=== PATIENT | male | born 1950 | race Caucasian/White ===

== ENCOUNTER 2019-05-20 18:19 | Emergency (ER) | payer OTHER, SELFPAY ==
[2019-05-20 19:22] VITALS: BP 137/75; PULSE 65; RESP 20; TEMP 36.6; O2SAT 97; BMI 25.8
--- NOTE | 2019-05-20 19:26 | DI.RAD.S_ITS ---
PROCEDURE: XR CHEST 2V INDICATIONS: short of breath with cough TECHNIQUE: 2 views of the chest were acquired. COMPARISON: None. FINDINGS: Surgical changes and devices: None. Lungs and pleura: Lungs are clear. No pleural effusions or pneumothorax. Mediastinum: Mediastinal contours are normal. Heart size is normal. Bones and chest wall: No suspicious bony abnormalities. Soft tissues appear unremarkable. IMPRESSION: No acute cardiopulmonary abnormalities or focal airspace disease. Dictated by: Tylor Rapp M.D. on 05/20/2019 at 20:42 Approved by: Tylor Rapp M.D. on 05/20/2019 at 20:42
--- NOTE | 2019-05-20 20:08 | ED.SOB ---
HPI - SOB/Dyspnea General Chief Complaint: Upper Respiratory Symptoms Stated Complaint: FLUID IN LUNGS COLD SYMPTOMS Time Seen by Provider: 05/20/19 20:07 Source: patient and other (Friend at bedside) Mode of arrival: Ambulatory Limitations: no limitations History of Present Illness HPI Narrative: This is a 68-year-old male who comes to the emergency department with concern for pneumonia. Patient states he has had nasal congestion, a nonproductive cough and feeling more short of breath. Patient has not had any fevers. He states he had a cold like symptoms for about a week and he typically will later than developing pneumonia. He has had runny nose, he states the cough is dry. He states he has felt increasingly short of breath the last couple days. Patient states he has not had any nausea or vomiting. He denies any chest pain or pressure. He denies any issues with urination or bowel movements. He denies any swelling in his extremities. He denies any other medical history. He has a remote history of tobacco use for short period of time, he does smoke marijuana he denies any other illicit. He has had multiple orthopedic surgeries. He states he is allergic to oxycodone but no other medications. Patient has not had any recent travel history or known suspicious contacts. Related Data Previous Rx's Medication Instructions Recorded azithromycin See Rx Instructions .ROUTE 05/20/19 .COMPLEX #6 tab Allergies Allergy/AdvReac Type Severity Reaction Status Date / Time latex [LATEX] Allergy Mild lip Unverified 06/20/17 13:11 swelling and itchy oxycodone [OXYCODONE] Allergy Mild Unverified 06/20/17 13:11 Review of Systems Review of Systems ROS Unobtainable: All systems reviewed & are unremarkable except as noted in HPI and below Patient History alcohol intake frequency: a few times a week Alcohol type: beer Substance Use Type: marijuana Exam Narrative Exam Narrative: GEN: well nourished, well appearing male, alert and oriented x 3, patient appears to be in mild distress. HEENT: Atraumatic, pupils are equal round reactive to light, extraocular movements are intact, nares are clear, TMs are clear with no fluid, there is no conjunctival pallor. Throat is clear without any exudates, erythema, tonsillar enlargement or uvular deviation HEART: Regular rate and rhythm without murmur, clicks, rubs. No edema bilateral lower extremities. LUNGS:Lungs mild wheeze on the right greater on the left, wheezes, no rales, crackles, chest moves symmetrically, no tachypnea accessory muscle use. ABD:bowel sounds normal, soft, non-tender, no guarding, rebound, rigidity, no masses noted, no hepatosplenomegaly MSCL: Non-tender, no muscle atrophy, full range of motion, normal gait NEURO:CN 2-12 intact, sensation normal SKIN: No rashes or skin changes noted. Initial Vital Signs Initial Vital Signs: Vital Signs Temperature 97.8 F 05/20/19 19:22 Pulse Rate 65 05/20/19 19:22 Respiratory Rate 20 05/20/19 19:22 Blood Pressure 137/75 05/20/19 19:22 Pulse Oximetry 97 05/20/19 19:22 Course Orders Ordered: ED Orders 05/20/19 19:26 XR chest 2V Stat 05/20/19 19:30 Respiratory Panel (Film Array) Stat Discontinued Medications Albuterol (Ventolin Hfa Prepack) 1 box MISC SEEINSTR ONE Stop: 05/20/19 20:20 Last Admin: 05/20/19 20:50 Dose: 1 box Documented by: BHUMIKA Ceftriaxone Sodium (Rocephin) 1,000 mg IM NOW ONE Stop: 05/20/19 20:36 Last Admin: 05/20/19 20:57 Dose: 1,000 mg Documented by: ROBERT Vital Signs Vital signs: Vital Signs - 8 hr 05/20/19 19:22 05/20/19 21:03 Temperature 97.8 F Pulse Rate 65 80 Respiratory Rate 20 22 Blood Pressure 137/75 Blood Pressure [Left Arm] 130/90 Pulse Oximetry 97 96 MDM - SOB/Dyspnea Lab Data Attestation: I reviewed the patient's lab results. Labs: Lab Results 05/20/19 Range/Units 19:30 Chlamy pneumoniae PCR Not detected (Not Detect) Adenovirus (PCR) Not detected (Not Detect) B.parapertussis DNA PCR Not detected (Not Detect) Coronavirus OC43 (PCR) Not detected (Not Detect) Coronavirus HKU1 (PCR) Not detected (Not Detect) Coronavirus 229E (PCR) Not detected (Not Detect) Coronavirus NL63 (PCR) Not detected (Not Detect) Human Metapneumovir PCR Detected H (Not Detect) Influenza Type A (PCR) Not detected (Not Detect) Influenza Type B (PCR) Not detected (Not Detect) M. pneumoniae (PCR) Not detected (Not Detect) Parainfluenza 1 (PCR) Not detected (Not Detect) Parainfluenza 2 (PCR) Not detected (Not Detect) Parainfluenza 3 (PCR) Not detected (Not Detect) Parainfluenza 4 (PCR) Not detected (Not Detect) RSV (PCR) Not detected (Not Detect) Entero/Rhino (PCR) Not detected (Not Detect) Imaging Data Chest x-ray: My Impression: Patient appears to have infiltrate on the right mid lower lobe on prelim. No prior chest x-ray for comparison. Otherwise no other acute changes. No signs of pulmonary edema. Patient has some cardiomegaly. No free air noted. No fractures. Discharge Plan Departure Patient Disposition: Home Clinical Impression: Pneumonia, Infection due to human metapneumovirus (hMPV) Discharge Date/Time: 05/20/19 21:04 Instructions: Atypical Pneumonia Activity Restrictions/Additional Instructions: Follow-up with your physician in the next week for recheck. Call the emergency department to follow-up your respiratory panel as you have elected to return home before it has resulted the number is [phone] Take antibiotics until completely gone unless directed otherwise. Use albuterol inhaler 1-2 puffs every 4 hours as needed for wheezing. Use a spacer with this. Return to the ER for new or worsening symptoms, increasing shortness of breath, lightheadedness, passing out, new chest pain, coughing up blood or colored productive sputum, swelling of your extremities, persistent vomiting or other new or concerning symptoms. Prescriptions: New azithromycin 250 mg tablet See Rx Instructions .ROUTE .COMPLEX Qty: 6 RF: 0 Referrals: Se Dupree MD [Primary Care Provider] -
--- NOTE | 2019-05-20 20:39 | PC.NURSE ---
IV started 2nd attempt RAC with #[id number].Blood drawn for labs-sent. First IV attempt unsuccessful, IV cath removed intact.Pt tolerated well.
[2019-05-20] MEDS: ALBUTEROL HFA PREPACK 1 BOX MISC (20:50)
[2019-05-20 20:51] LABS: Adenovirus Not Detected (Not Detect); Bordetella pertussis Not Detected (Not Detect); Chlamydophila pneumoniae Not Detected (Not Detect); Coronavirus 229E Not Detected (Not Detect); Coronavirus HKU1 Not Detected (Not Detect); Coronavirus NL 63 Not Detected (Not Detect); Coronavirus OC43 Not Detected (Not Detect); Human Metapneumovirus Detected (Not Detect); Human Rhinovirus/Enterovirus Not Detected (Not Detect); Influenza A Not Detected (Not Detect); Influenza B Not Detected (Not Detect); Mycoplasma pneumoniae Not Detected (Not Detect); Parainfluenza Virus 1 Not Detected (Not Detect); Parainfluenza Virus 2 Not Detected (Not Detect); Parainfluenza Virus 3 Not Detected (Not Detect); Parainfluenza Virus 4 Not Detected (Not Detect); Respiratory Syncytial Virus Not Detected (Not Detect)
[2019-05-20] MEDS: cefTRIAXone 2,000 MG VIAL 1000 MG IM (20:57)
[2019-05-20 21:03] VITALS: BP 130/90; PULSE 80; RESP 22; O2SAT 96
== END 2019-05-20 21:04 | disposition home or self-care (01) ==
PROVIDERS: Emergency Provider Emergency Medicine; Family Provider Emergency Medicine Emergency Medical Services; PCP Emergency Medicine Emergency Medical Services
DX: J12.3 Human metapneumovirus pneumonia (principal)
CPT/HCPCS: 36415; 71046; 87633; 96372; 99283; 99284; J0696

== ENCOUNTER → 2020-02-28 15:04 | Outpatient (CLI) | payer OTHER, SELFPAY ==
--- NOTE | 2020-02-28 15:08 | DI.MRI.S_ITS ---
PROCEDURE: MR LUMBAR SPINE WO CON INDICATIONS: Spondylolisthesis, site unspecified TECHNIQUE: Noncontrast sagittal T1 spin echo and T2 fast echo, sagittal STIR, axial T1 and T2 fast spin echo through the lumbar spine. In cases with scoliosis, additional coronal T2 fast spin echo may be performed. COMPARISON: None. FINDINGS: Image quality: Diagnostic, with note made of motion artifact. Alignment and Curvature: Mild levoconvex scoliotic curvature is noted. There is grade 1 L5-S1 anterolisthesis seen. Associated bilateral L5 pars defects can be seen. Minimal L4-5 retrolisthesis is seen. Bone Marrow: Marrow is of normal overall signal. No acute vertebral body compression fractures. Spinal Cord: Conus medullaris terminates at the L1 level. Visualized cord demonstrates normal signal and size. Paraspinous Soft Tissues: No paravertebral masses. T12-L1: Normal appearance. L1-L2: Normal appearance. L2-L3: The disc height and disc signal are relatively well preserved. Moderate generalized disc bulge is seen. Mild to moderate facet hypertrophy can be seen at this level. No significant neural foraminal narrowing is seen. Moderate central canal narrowing is seen. L3-L4: Mild loss of disc height is seen. Loss of disc signal is seen. Moderate loss of disc height is seen. Loss of disc signal is seen. There is a right lateral recess disc extrusion seen, with mild superior migration of the extruded disc material. There is an associated annular fissure seen. Moderate facet joint hypertrophy is seen. Associated hypertrophy of the ligamentum flavum can be seen. There is moderate right-sided and no significant left-sided neural foraminal narrowing seen. Moderate central canal narrowing is seen. L4-L5: Moderate loss of disc height is seen. Loss of disc signal is seen. There is a focal annular fissure seen posteriorly. The [id number] disc bulge is seen. Moderate facet joint hypertrophy is seen. Moderate bilateral neural foraminal narrowing can be seen, left worse than right. Mild to moderate central canal narrowing is seen. L5-S1: Moderate loss of disc height is seen. Loss of disc signal is seen. Moderate facet joint hypertrophy is seen. Moderate generalized disc bulge is seen. Moderate to severe bilateral neural foraminal narrowing can be seen. There is a degree of compression seen upon the exiting nerve roots. Mild central canal narrowing is seen. IMPRESSION: Lower lumbar spine degenerative changes are seen, which are worst at the L5-S1 level, where there is grade 1 anterolisthesis and associated bilateral pars defects. At L5-S1, there is moderate to severe bilateral neural foraminal narrowing, with associated exiting nerve root compression. At L3-L4, there is a right lateral recess disc extrusion, with superior migration of the disc material. Dictated by: Aki Rojas M.D. on 03/01/2020 at 9:20 Approved by: Aki Rojas M.D. on 03/01/2020 at 9:25
== END ==
PROVIDERS: Family Provider Emergency Medicine Emergency Medical Services; PCP Emergency Medicine Emergency Medical Services; Referring Provider Family Medicine; Visit Provider Family Medicine
DX: M43.17 Spondylolisthesis, lumbosacral region (principal); M51.16 Intervertebral disc disorders with radiculopathy, lumbar region; M47.26 Other spondylosis with radiculopathy, lumbar region; M47.27 Other spondylosis with radiculopathy, lumbosacral region; M48.07 Spinal stenosis, lumbosacral region
CPT/HCPCS: 72148

== ENCOUNTER → 2021-01-20 15:56 | Outpatient (CLI) | payer MEDICARE, SELFPAY ==
[2021-01-24 15:15] LABS: Fecal Immunochemical Test Negative (Negative); H. Pylori Antigen Stool Negative (Negative)
== END ==
PROVIDERS: Family Provider Emergency Medicine Emergency Medical Services; PCP Emergency Medicine Emergency Medical Services; Referring Provider Family Medicine; Visit Provider Family Medicine
DX: R10.84 Generalized abdominal pain (principal); K92.1 Melena
CPT/HCPCS: 82274; 87338

== ENCOUNTER → 2022-07-31 11:15 | Outpatient (CLI) | payer MEDICARE, MEDICAID, SELFPAY ==
[2022-07-31 19:05] LABS: Add Manual Diff / Slide Review NO; Basophils Absolute Auto 0 /uL (0-100); Basophils Percent Auto 0.7 % (0-2); Eosinophils Absolute Auto 100 /uL (0-450); Hematocrit 41.1 % (41-53); Hemoglobin 13.9 g/dL (13.5-17.5); Lymphocytes Absolute Auto 1900 /uL (1100-4500); Lymphocytes Percent Auto 29.1 % (25-40); Mean Corpuscular HGB Conc 33.8 % (30-36); Mean Corpuscular Volume 94.8 fL (80-100); Monocytes Absolute Auto 900 /uL (0-900); Neutrophils Absolute Auto 3700 /uL (1500-7000); Neutrophils Percent Auto 55.2 % (50-75); Platelet Count 218 X10^3/uL (150-400); Red Blood Cell Count 4.33 X10^6/uL (4.5-5.9); Red Cell Distribution Width 13.6 % (11.6-14.8); White Blood Cell Count 6.6 X10^3/uL (4.5-11.0)
== END ==
PROVIDERS: PCP Family Medicine; Visit Provider Family Medicine
DX: G58.9 Mononeuropathy, unspecified (principal); K92.1 Melena
CPT/HCPCS: 85025

== ENCOUNTER → 2022-08-01 09:52 | Outpatient (CLI) | payer MEDICARE, MEDICAID, SELFPAY ==
[2022-08-03 13:12] LABS: Fecal Immunochemical Test Negative (Negative)
== END ==
PROVIDERS: PCP Family Medicine; Visit Provider Family Medicine
DX: K92.1 Melena (principal)
CPT/HCPCS: 82274

== ENCOUNTER → 2022-08-10 11:38 | Outpatient (CLI) | payer MEDICARE, MEDICAID, SELFPAY ==
--- NOTE | 2022-08-10 11:39 | DI.MRI.S_ITS ---
PROCEDURE: MR CERVICAL SPINE WO CON INDICATIONS: cervical radiculopathy TECHNIQUE: Noncontrast sagittal T1 spin echo and T2 fast spin echo, sagittal STIR, foraminal oblique sagittal T2 fast spin echo, and axial gradient echo or T2 fast spin echo through the cervical spine. COMPARISON: [facility], MR, MR CERVICAL SPINE WITHOUT CONTRAST, 05/03/2020, 11:37. FINDINGS: Image quality: Excellent. Alignment and Curvature: There is reversal cervical with apex at C5-6. Grade 2 anterolisthesis C4 on C5 and grade 1 retrolisthesis of C5 on C6, unchanged. Bone Marrow: Marrow demonstrates normal overall signal. Spinal Cord: Visualized spinal cord has normal size and signal. No cerebellar tonsillar herniation. Paraspinous Soft Tissues: No paravertebral masses. Prevertebral soft tissues are normal in thickness. Discs: Multilevel moderate to severe disc desiccation is present most severe at C5-6, C6-7. C2-C3: Minimal disc bulge without spinal stenosis. Moderate left and mild right foraminal narrowing, progressive on the left. C3-C4: Mild disc bulge without spinal stenosis. Gfqz-wa-xcwmuwgj right and minimal left foraminal narrowing with uncovertebral arthropathy, progressive on the right. C4-C5: Mild disc bulge with effacement of the anterior thecal sac. Mild to moderate bilateral foraminal narrowing progressive with uncovertebral hypertrophy. C5-C6: Mild disc bulge including a left posterior paracentral component causing marked compromise the left lateral recess. Severe left foraminal narrowing slightly progressive with uncovertebral hypertrophy. C6-C7: Mild disc bulge with mild spinal stenosis. Moderate bilateral foraminal narrowing , right greater than left. Cannot exclude questionable nerve root compromise on the right. Uncovertebral hypertrophy is present. Overall appearance is stable. C7-T1: No disc bulge or spinal stenosis. Moderate right foraminal narrowing, stable. IMPRESSION: Multilevel degenerative changes with notable areas of interval progression as above. Multilevel foraminal narrowing most severe at C5-6 secondary to uncovertebral arthropathy. Spinal stenosis most notable at C6-7 secondary to disc bulge with contributing effect of facet/ligamentum flavum arthropathy. Dictated by: Justyna Pradhan M.D. on 08/10/2022 at 16:35 Approved by: Justyna Pradhan M.D. on 08/10/2022 at 16:38
== END ==
PROVIDERS: PCP Family Medicine; Referring Provider Family Medicine; Visit Provider Family Medicine
DX: M54.12 Radiculopathy, cervical region (principal); M48.02 Spinal stenosis, cervical region; M47.812 Spondylosis without myelopathy or radiculopathy, cervical region; M50.323 Other cervical disc degeneration at C6-C7 level
CPT/HCPCS: 72141

== ENCOUNTER → 2022-08-11 12:05 | Outpatient (CLI) | payer MEDICARE, MEDICAID, SELFPAY ==
[2022-08-14 17:07] LABS: Fecal Immunochemical Test Negative (Negative)
== END ==
PROVIDERS: PCP Family Medicine; Visit Provider Family Medicine
DX: K92.1 Melena (principal)
CPT/HCPCS: 82274

== ENCOUNTER → 2022-08-22 11:42 | Outpatient (CLI) | payer MEDICARE, MEDICAID, SELFPAY ==
--- NOTE | 2022-08-22 | DI.MRI.S_ITS ---
PROCEDURE: MR LUMBAR SPINE WO CON INDICATIONS: Radiculopathy, lumbar region TECHNIQUE: Noncontrast sagittal T1 spin echo and T2 fast echo, sagittal STIR, and T2 fast spin echo through the lumbar spine. In cases with scoliosis, additional coronal T2 fast spin echo may be performed. COMPARISON: [facility], MR, MR LUMBAR SPINE WO CON, 02/28/2020, 15:16. FINDINGS: Image quality: Excellent. Alignment and Curvature: Mild leftward curvature of lower lumbar spine with apex at L4-5 level is seen. There is 8 mm anterolisthesis of L5 on S1 unchanged from prior study. No new area of spondylolisthesis. Bone Marrow: Marrow is of normal overall signal. No acute vertebral body compression fractures. Spinal Cord: Conus medullaris terminates at the T12-L1 evel. Visualized cord demonstrates normal signal and size. Paraspinous Soft Tissues: No paravertebral masses. T12-L1: Normal appearance. L1-L2: Loss of disc signal. Bilateral facet arthrosis is seen with hypertrophy of ligamentum flavum. No significant central canal stenosis or neural foraminal narrowing. L2-L3: There is loss of disc signal. Broad-based disc bulge and bilateral facet arthrosis with hypertrophy of ligamentum flavum is seen causing mild central canal stenosis, no significant neural foraminal narrowing. L3-L4: There is loss of disc signal and disc height. Broad-based disc bulge and bilateral facet arthrosis with hypertrophy of ligamentum flavum is seen causing [id number] central canal stenosis and moderate right-sided neural foraminal narrowing. No significant left-sided neural foraminal narrowing. L4-L5: Loss of disc height and disc signal is seen. There is broad-based disc bulge and bilateral facet arthrosis with [id number]-[id number] central canal stenosis and moderate to severe right-sided neural foraminal narrowing, moderate left-sided neural foraminal narrowing. L5-S1: Loss of disc height and disc signal is seen. Broad-based disc bulge and bilateral facet arthrosis is noted. No significant central canal stenosis or neural foraminal narrowing. IMPRESSION: 1. Degenerative disc disease throughout lumbar spine causing various degrees of central canal stenosis and bilateral neural foraminal narrowing as described in detail above. 2. Mild left were scoliosis as above. Stable 8 mm anterolisthesis of L5 on S1. No gross pars defect is seen. 3. No marrow edema. No acute compression fracture. Dictated by: Alexander Moore M.D. on 08/22/2022 at 17:11 Approved by: Alexander Moore M.D. on 08/22/2022 at 17:14
== END ==
PROVIDERS: PCP Family Medicine; Referring Provider Family Medicine; Visit Provider Family Medicine
DX: M51.16 Intervertebral disc disorders with radiculopathy, lumbar region (principal); M51.17 Intervertebral disc disorders with radiculopathy, lumbosacral region; M48.061 Spinal stenosis, lumbar region without neurogenic claudication; M41.9 Scoliosis, unspecified; M43.17 Spondylolisthesis, lumbosacral region
CPT/HCPCS: 72148

== ENCOUNTER → 2022-09-27 10:32 | Outpatient (CLI) | payer MEDICARE, MEDICAID, SELFPAY ==
[2022-09-27 20:00] LABS: Cholesterol 172 mg/dL (140-199); HDL Cholesterol 46 mg/dL (40-60); LDL Cholesterol Calculated 109 mg/dL (<100); Triglycerides 86 mg/dL (35-150)
== END ==
PROVIDERS: PCP Family Medicine; Visit Provider Family Medicine
DX: E78.2 Mixed hyperlipidemia (principal); Z12.5 Encounter for screening for malignant neoplasm of prostate; Z13.220 Encounter for screening for lipoid disorders
CPT/HCPCS: 80061; G0103

== ENCOUNTER → 2022-10-02 09:35 | Outpatient (CLI) | payer MEDICARE, MEDICAID, SELFPAY ==
--- NOTE | 2022-10-02 09:37 | DI.RAD.S_ITS ---
PROCEDURE: XR LUMBAR SPINE MIN 4V INDICATIONS: LOW BACK PAIN TECHNIQUE: 5 views of the lumbar spine were acquired, including bilateral oblique views. COMPARISON: [facility], MR, MR LUMBAR SPINE WO CON, 02/28/2020, 15:16. FINDINGS: Bones: 5 nonrib-bearing vertebrae are present. There is mild rightward curvature. Grade 2 anterolisthesis of L5 on S1 with pars defect. No vertebral body compression fractures. No suspicious bony lesions. Soft tissues: Overlying bowel gas pattern is normal. No suspicious soft tissue calcifications. IMPRESSION: Pars defect with grade 2 anterolisthesis of L5 on S1. Dictated by: Justyna Pradhan M.D. on 10/02/2022 at 16:33 Approved by: Justyna Pradhan M.D. on 10/02/2022 at 16:57
--- NOTE | 2022-10-02 09:37 | DI.RAD.S_ITS ---
PROCEDURE: XR CERVICAL SPINE 4V OR 5V INDICATIONS: NECK PAIN TECHNIQUE: 5 views of the cervical spine acquired. COMPARISON: None. FINDINGS: Bones: No fractures or dislocations to the C7-T1 level. Oblique images demonstrate no bony foraminal stenoses. Grade 1 anterolisthesis of C4 on C5. There is overall reversal cervical curvature with apex at C6. Multilevel moderate to severe disc space narrowing most significant at C6-7. Bridging anterior osteophytes are present most severe at C5-6. Multilevel uncovertebral arthropathy is present. Soft tissues: No prevertebral soft tissue swelling. IMPRESSION: Multilevel degenerative changes. Dictated by: Justyna Pradhan M.D. on 10/02/2022 at 16:58 Approved by: Justyna Pradhan M.D. on 10/02/2022 at 16:58
--- NOTE | 2022-10-02 12:28 | DI.RAD.S_ITS ---
PROCEDURE: XR THORACIC SPINE 3V INDICATIONS: Thoracic back pain TECHNIQUE: 3 views of the thoracic spine were acquired. COMPARISON: None. FINDINGS: Bones: No fractures or dislocations. Mild levoscoliosis of upper thoracic spine with apex at T3 level and mild right were or curvature of lower thoracic spine with apex at T10 level is seen. Degenerative endplate changes and loss of disc height throughout thoracic spine is noted. No suspicious bony lesions. 12 pairs of ribs are noted, and appear intact where visualized. Soft tissues: No paravertebral stripe thickening. IMPRESSION: Mild scoliosis of thoracic spine as described above. No acute compression fracture or spondylolisthesis. Degenerative disc disease throughout thoracic spine. Dictated by: Alexander Moore M.D. on 10/02/2022 at 15:38 Approved by: Alexander Moore M.D. on 10/02/2022 at 15:41
== END ==
PROVIDERS: PCP Family Medicine; Referring Provider Anesthesiology; Visit Provider Anesthesiology
DX: M47.22 Other spondylosis with radiculopathy, cervical region (principal); M54.16 Radiculopathy, lumbar region; M51.34 Other intervertebral disc degeneration, thoracic region; M43.17 Spondylolisthesis, lumbosacral region; M41.9 Scoliosis, unspecified; M54.9 Dorsalgia, unspecified; M79.18 Myalgia, other site
CPT/HCPCS: 72050; 72072; 72110; 99214

== ENCOUNTER → 2022-10-19 09:34 | Outpatient (CLI) | payer MEDICARE, MEDICAID, SELFPAY ==
--- NOTE | 2022-10-19 09:37 | DI.MRI.S_ITS ---
PROCEDURE: MR THORACIC SPINE WO CON INDICATIONS: chronic mid back pain TECHNIQUE: Noncontrast sagittal T1 spine echo and T2 fast spin echo, sagittal STIR, and T2 fast spin echo through the thoracic spine. COMPARISON: [facility], MR, MR THORACIC SPINE WITHOUT CONTRAST, 05/03/2020, 11:37. [facility], CR, XR THORACIC SPINE 3V, 10/02/2022, 12:38. FINDINGS: Image quality: Excellent. Alignment and Curvature: There is levoconvex curvature of the upper thoracic spine. Bone Marrow: Marrow is of normal overall signal. No acute vertebral body compression fractures. Spinal Cord: Visualized spinal cord is normal in size and signal. Paraspinous Soft Tissues: No paravertebral masses. Mild fatty infiltration of the paraspinous musculature. Miscellaneous: There is mild to moderate narrowing of the left T6-7, T7-8, T8-9, and T9-10 neural foramina. Mild to moderate right neural foraminal narrowing at T1-2, T2-3, and T3-4 levels. On axial images, central canal and foramina appear widely patent at all scanned levels. Degenerative changes are seen in the included portions of the cervical spine. IMPRESSION: 1. Mild levoconvex curvature of the upper lumbar spine with resulting mild to moderate multilevel neural foraminal narrowing. 2. No vertebral compression fracture is seen. Approved by: Avinash Green M.D. on 10/19/2022 at 16:55
== END ==
PROVIDERS: PCP Family Medicine; Referring Provider Family Medicine; Visit Provider Family Medicine
DX: M48.04 Spinal stenosis, thoracic region (principal); M47.812 Spondylosis without myelopathy or radiculopathy, cervical region; M47.816 Spondylosis without myelopathy or radiculopathy, lumbar region; M79.18 Myalgia, other site; G89.29 Other chronic pain; M54.6 Pain in thoracic spine; M54.2 Cervicalgia; M54.9 Dorsalgia, unspecified
CPT/HCPCS: 20552; 72146; 76942; 99213

== ENCOUNTER 2022-12-20 10:59 | Outpatient (CLI) | payer MEDICARE, MEDICAID, SELFPAY ==
[2022-12-20] VITALS (8 sets, daily range): BP systolic 112–136; BP diastolic 68–85; PULSE 60–78; RESP 12–20; O2SAT 99–100
--- NOTE | 2022-12-20 11:01 | DI.RAD.S_ITS ---
PROCEDURE: PAIN C/T FACET INJ/BLK 1ST L INDICATIONS: CERVICAL SPONDYLOSIS COMPARISON: [facility], CR, XR CERVICAL SPINE 4V OR 5V, 10/02/2022, 9:40. FINDINGS: Fluoroscopic spot filming was performed to verify placement of spinal needles on the right at the C4, C5, and C6 levels, as labeled on the films. Appropriate location of the needle tips was confirmed by injection of iodinated contrast. IMPRESSION: Intraprocedural examination demonstrating appropriate positions of the needles. Dictated by: Aki Rojas M.D. on 12/20/2022 at 17:55 Approved by: Aki Rojas M.D. on 12/20/2022 at 17:55
[2022-12-20] MEDS: iopamidoL 15 ML VIAL 3 ML INJ (11:49)
[2022-12-20] MEDS: BUPIVACAINE 0.5% (PF) 10 ML VIAL 5 ML INJ (11:50)
--- NOTE | 2022-12-20 12:32 | P.PCN_ITS ---
Date/Time/Diagnoses Date of procedure: 12/20/22 Time of procedure: 11:30 Procedure Notes Physician: Teo Graves Total Fluoroscopy time (seconds): 20 Total sedation minutes: 0 Procedure in detail & Post-procedure care: Right C4, 5, 6 Cervical Medial Branch Blocks Indications: Denis is presenting for treatment of cervical spondylosis with cervical pain. Preoperative diagnosis: Cervical spondylosis Postoperative diagnosis: Same Pre-procedure History: Patient demonstrates today moderate to severe non- radicular neck pain without neurologic deficit aggravated by hyperextension yes Neck pain greater than arm pain? yes Patient today has tenderness over the suspected joint(s) yes History of post-traumatic injury? no Hypertrophic arthropathy yes Neck pain associated with suspected motion segment instability, hypermobility or pseudoarthrosis no Pre-testing pain score (VAS): F 5/10 Focused Examination: Ax3 Mood and affect are normal Vital Signs: VSS ASA: 2 Consent: Following review of allergies and potential side effects/complications, including, but not necessarily limited to, infection, allergic reaction, local tissue breakdown, stroke, temporary or permanent nerve injury, paralysis, and possible , the patient indicated that they understood and agreed to proceed.? An informed consent document was signed by the patient, witnessed by a nurse and placed in the patient's chart.? Additionally, other treatment options including medications and physical therapy were reviewed with the patient. All questions were answered. Site was then marked. Anesthesia: Local Position: Prone Monitoring: NIBP, Pulse oximetry, 3 lead EKG Needle used: 22G 3.5 inch spinal needle Contrast: Isovue 300M Injectate: 0.5% bupivacaine 0.5 mL per site Procedure: The patient was brought into the procedure room and positioned into the prone position. Skin was prepped with a Chloraprep solution, allowed to air dry, and then draped in sterile fashion.? The right C4-5 and C5-6 facet joints were visually identified with fluoroscopy. Lidocaine 1% was used to anesthetize the skin over each target destination with a 25ga needle. A 22 ga, 3.5 inch spinal needle was advanced to the location of the medial branch at the waist of the articular pillar using intermittent fluoroscopy in the AP view. Isovue 300M contrast 0.2ml was injected at each level outlining the borders for each level in the AP/lateral views and confirmed in the foraminal view. There was no evidence of vascular or intrathecal uptake. The above injectate was slowly injected at each target destination. At the end of the procedure the needles were withdrawn and Band-Aids were applied for a dressing. Post Procedure: Patient was taken to the recovery and monitored. The patient was provided a Pain Log to continue to record the patient's response to the target- specific procedure prior to the patient's follow-up visit with the referring physician. Patient was stable upon discharge. Detailed post procedure instructions were provided. Patient was asked to call in the event of worsening pain, fever, weakness, numbness or bladder or bowel incontinence. Postoperatively, the patient demonstrates the following changes with hyperextension and with tenderness over the suspected joint(s). Provacative testing using the facet loading test Right side Directly before the block ?VAS (0-10) = 5/10 5 minutes after the block VAS (0-10) = 0/10 Percentage relief obtained with this diagnostic block 100% Any improved physical functioning directly after the blocks? Range of motion Based on the medial branches blocked today, if the patient meets insurance criteria for radiofrequency, the treatment should result in the denervation of the right C4-5 and C5-6 facet joint nerves. We would expect to denervate a total of 2 facets during the radiofrequency ablation. Complications: None
== END 2022-12-20 12:18 | disposition home or self-care (01) ==
LOC: RAD 11:00
PROVIDERS: PCP Family Medicine; Referring Provider Anesthesiology; Visit Provider Anesthesiology
DX: M47.812 Spondylosis without myelopathy or radiculopathy, cervical region (principal)
CPT/HCPCS: 64490; 64491; J2250

== ENCOUNTER → 2023-04-11 13:57 | Outpatient (CLI) | payer OTHER, SELFPAY ==
[2023-04-11 20:52] LABS: Hemoglobin A1C% w Est Avg Glu 5.8 % (4.0-6.0)
[2023-04-11 21:05] LABS: TSH w/ Reflex to FT4 2.52 uIU/mL (0.47-4.68)
[2023-04-11 21:26] LABS: Vitamin B12 687 pg/mL (239-931)
[2023-04-16 15:29] LABS: Albumin 3.6 g/dL (2.9-4.4); Alpha 1 Globulin 0.2 g/dL (0.0-0.4); Alpha 2 Globulin 0.8 g/dL (0.4-1.0); Protein, Total 6.6 g/dL (6.0-8.5)
== END ==
PROVIDERS: PCP Family Medicine; Visit Provider Family Medicine
DX: G62.9 Polyneuropathy, unspecified (principal); R73.9 Hyperglycemia, unspecified; M62.838 Other muscle spasm
CPT/HCPCS: 82607; 83036; 84155; 84165; 84443

== ENCOUNTER → 2023-12-18 10:24 | Outpatient (CLI) | payer MEDICARE, SELFPAY ==
[2023-12-18 19:06] LABS: Add Manual Diff / Slide Review NO; Basophils Absolute Auto 0 /uL (0-100); Basophils Percent Auto 0.8 % (0-2); Eosinophils Absolute Auto 100 /uL (0-450); Eosinophils Percent Auto 1.6 % (2-4); Hematocrit 40.5 % (41-53); Hemoglobin 13.5 g/dL (13.5-17.5); Lymphocytes Absolute Auto 2200 /uL (1100-4500); Lymphocytes Percent Auto 38.8 % (25-40); Mean Corpuscular HGB Conc 33.3 % (30-36); Mean Corpuscular Hemoglobin 31.2 PG (26-34); Mean Corpuscular Volume 93.8 fL (80-100); Monocytes Absolute Auto 900 /uL (0-900); Neutrophils Absolute Auto 2400 /uL (1500-7000); Neutrophils Percent Auto 42.8 % (50-75); Platelet Count 199 X10^3/uL (150-400); Red Blood Cell Count 4.31 X10^6/uL (4.5-5.9); Red Cell Distribution Width 14.2 % (11.6-14.8); White Blood Cell Count 5.7 X10^3/uL (4.5-11.0)
[2023-12-18 20:22] LABS: BUN Creatinine Ratio 14.2 (6-22); Blood Urea Nitrogen 15 mg/dL (9-20); Calcium 9.3 mg/dL (8.4-10.2); Carbon Dioxide 27 mmol/L (22-32); Chloride 104 mmol/L (98-107); Cholesterol 162 mg/dL (140-199); Estimated Glomerular Filt Rate > 60 mL/min (>60); Glucose 91 mg/dL (80-110); HDL Cholesterol 43 mg/dL (40-60); HEMOLYSIS < 15 (0-50); LDL Cholesterol Calculated 100 mg/dL (<100); Potassium 4.3 mmol/L (3.4-5.1); Sodium 137 mmol/L (137-145); Triglycerides 94 mg/dL (35-150)
== END ==
PROVIDERS: PCP Family Medicine; Visit Provider Family Medicine
DX: Z12.11 Encounter for screening for malignant neoplasm of colon (principal); R73.9 Hyperglycemia, unspecified; G62.9 Polyneuropathy, unspecified; Z12.5 Encounter for screening for malignant neoplasm of prostate; E78.2 Mixed hyperlipidemia
CPT/HCPCS: 80048; 80061; 85025; G0103

== ENCOUNTER → 2024-04-25 09:43 | Outpatient (CLI) | payer MEDICARE, SELFPAY ==
[2024-04-25 19:04] LABS: Cholesterol 183 mg/dL (140-199); Glucose 97 mg/dL (80-110); HDL Cholesterol 45 mg/dL (40-60); LDL Cholesterol Calculated 117 mg/dL (<100); Triglycerides 106 mg/dL (35-150)
[2024-04-25 19:35] LABS: Prostate Specific Antigen Scrn 0.728 ng/mL (0.1-4.0)
[2024-04-28 18:37] LABS: Hep C Virus Ab w/Reflex Quant NEGATIVE s/c (NEGATIVE)
== END ==
PROVIDERS: PCP Family Medicine; Visit Provider Family Medicine
DX: Z13.1 Encounter for screening for diabetes mellitus (principal); Z11.59 Encounter for screening for other viral diseases; Z13.220 Encounter for screening for lipoid disorders; Z12.5 Encounter for screening for malignant neoplasm of prostate
CPT/HCPCS: 80061; 82947; 86803; G0103

== ENCOUNTER 2024-06-17 07:38 | Day surgery (SDC) | payer MEDICARE, SELFPAY ==
[2024-06-17] VITALS (7 sets, daily range): BP systolic 103–126; BP diastolic 70–83; PULSE 52–68; RESP 14–18; TEMP 36.1–36.2; O2SAT 96–99
[2024-06-17] MEDS: LACTATED RINGERS 1,000 ML 100 ML IV (08:27)
--- NOTE | 2024-06-17 08:41 | P.HP_ITS ---
History of Present Illness History of Present Illness Date Patient Seen: 06/17/24 Time Patient Seen: 08:41 Chief complaint: Colonoscopy Narrative: 73-year-old white male, last colonoscopy 12 years ago, he thinks he may or may not had polyps at that time. [facility] Medical History Paresthesia of skin Cervical spondylosis Myofascial pain Lumbar spondylosis Fractures Mumps Measles Chicken pox Screening for diabetes mellitus History of anemia Prostate cancer screening Encounter for general adult medical examination w/o abnormal findings Surgical History Anesthesia History of surgery on arm (~2011) History of hernia repair (~1996) Family History Father Cancer Social History Smoking Status: Former smoker alcohol intake: former Meds Home Medications and Allergies Home Medications Medication Instructions Recorded Confirmed Type sodium,potassium,mag sulfates 17.5 See Rx Instructions PO .COMPLEX 05/12/24 Rx gram-3.13 gram-1.6 gram oral soln #354 mL (Suprep Bowel Prep Kit) Allergies Allergy/AdvReac Type Severity Reaction Status Date / Time latex [LATEX] Allergy Mild lip Verified 06/17/24 08:21 swelling and itchy oxycodone [OXYCODONE] Allergy Mild Verified 06/17/24 08:21 Review of Systems Review of Systems ROS: Yes All systems reviewed with the patient and are negative except as otherwise documented Exam Vital Signs (past 8 hours): - 06/17/24 08:29 Temperature 97 F L Pulse Rate 67 Respiratory Rate 16 Blood Pressure 126/80 Pulse Oximetry 96 Narrative Exam Narrative: Gen: NAD, sitting comfortably in bed, appears well HEENT: Sclera are anicteric, head is normocephalic and atraumatic, trachea is midline. CV: RRR, no JVD Resp: clear to auscultation bilaterally, equal chest wall movement bilaterally Abd: soft, nontender, normoactive bowel sounds Ext: no edema, full range of motion Neuro: Cranial nerves II-XII grossly intact, no focal deficits Skin: No erythema or ecchymosis Assessment & Plan Assessment and plan (1) Colon cancer screening: Status: Acute Assessment & Plan narrative: Patient presents for colonoscopy Risks, benefits, alternatives to colonoscopy explained, including but not limited to bowel perforation or other serious complication requiring surgery at less than 1 in 5000 colonoscopies, abdominal pain, cramping or bleeding and less than 1% of colonoscopies, and the chances that we find a diagnosis that would require further intervention of about 2%. Patient agrees to proceed. Time-Based Coding :: [TOTAL MINUTES] spent with patient and on the chart (including review of chart, obtaining history, exam, reviewing outside data, placing orders, documenting exam and treatment plan, and counseling patient) on [DATE]. [employer] Equipment Coordinator Document charge(s): No
--- NOTE | 2024-06-17 08:58 | PM.OP.COLON ---
Operative Date/Time/Diagnoses Date of procedure: 06/17/24 Time of procedure: 08:59 Pre-op diagnosis: Colon screening Post-op diagnosis: same (Sigmoid diverticulosis, internal hemorrhoids) Procedure & Clinicians Study performed: Colonoscopy Same procedure as scheduled: Yes Indications: Colon screening Surgeon: Jay Rivero Procedure Notes SCOAP/Timeout: Performed Procedure in detail: Time-out was performed. Mac was induced. Patient was placed in left lateral decubitus position. The perineum was inspected without any gross abnormality. Lubricated pediatric colonoscope was inserted and advanced to the cecum. The terminal ileum was intubated. The colonoscope was withdrawn slowly inspecting the circumference of the colon. Extensive sigmoid diverticulosis was noted. Very small polyps may have been missed, prep quality was adequate. Retroflexed view of the rectum showed medium-sized, prolapsed nonbleeding internal hemorrhoids. The scope was withdrawn the patient was taken to PACU in good condition. Scope withdrawal time: 7 Findings: divertiulosis and internal hemorrhoids Specimen(s): none sent Complications: none Impression: Diverticulosis, hemorrhoids Post-procedure Recommendations: Colonoscopy in 10 years and High fiber diet Follow up: as needed Disposition: PACU
== END 2024-06-17 10:36 | disposition home or self-care (01) ==
PROVIDERS: Surgery; PCP Family Medicine; Referring Provider Surgery; Visit Provider Surgery
PROC: 0DJD8ZZ Inspection of Lower Intestinal Tract, Via Natural or Artificial Opening Endoscopic (ICD-10-PCS; CPT 45378; principal; 2024-06-17 08:45)
DX: Z87.891 Personal history of nicotine dependence (principal); Z12.11 Encounter for screening for malignant neoplasm of colon; K57.30 Diverticulosis of large intestine without perforation or abscess without bleeding; K64.8 Other hemorrhoids
CPT/HCPCS: G0121; J2704